=== PATIENT | male | born 1970 | race Hispanic/Latino ===

== ENCOUNTER → 2019-10-17 | Outpatient (CLI) | payer BC | END | disposition home or self-care (01) | LOC: RAH 13:01 | PROVIDERS: ATTEND Family Medicine | DX: S29.012A Strain of muscle and tendon of back wall of thorax, initial encounter (principal); M47.816 Spondylosis without myelopathy or radiculopathy, lumbar region; M25.78 Osteophyte, vertebrae; M47.814 Spondylosis without myelopathy or radiculopathy, thoracic region; M48.04 Spinal stenosis, thoracic region; X58.XXXA Exposure to other specified factors, initial encounter; Y93.89 Activity, other specified; Y92.89 Other specified places as the place of occurrence of the external cause; Y99.8 Other external cause status | CPT/HCPCS: 72072; 72100 ==

== ENCOUNTER 2022-03-27 17:03 | Emergency (ER) | payer BC ==
[~2022-03-27] VITALS: Ht 167.6 cm; Wt 81.6 kg
[2022-03-27 18:44] VITALS: BP 138/79
[2022-03-27] MEDS ORDERED: CYCLOBENZAPRINE HCL 10 MG TABLET PO ONE (19:00)
[2022-03-27] MEDS ORDERED: KETOROLAC 30MG VIAL (30MG/ML) IM ONE (19:00)
[2022-03-27] MEDS ORDERED: CYCL10TA16 PO (19:24)
[2022-03-27] MEDS ORDERED: IBUP-2070 PO (19:24)
== END 2022-03-27 19:46 | disposition home or self-care (01) ==
LOC: EDH 17:03
DX: S39.012A Strain of muscle, fascia and tendon of lower back, initial encounter (principal); X58.XXXA Exposure to other specified factors, initial encounter; Y93.89 Activity, other specified; Y92.89 Other specified places as the place of occurrence of the external cause; Y99.8 Other external cause status
CPT/HCPCS: 99284; 72131; 96372; J1885

== ENCOUNTER 2023-03-19 08:30 | Emergency (ER) | payer BC, OTHER ==
[~2023-03-19] VITALS: Ht 162.6 cm; Wt 82.6 kg
[~2023-03-19 08:30] MED LIST: CYCL10TA16 PO; IBUP-2070 PO
[2023-03-19 12:08] VITALS: BP 122/73; PULSE 74; RESP 18; O2SAT 98
[2023-03-19] MEDS ORDERED: MECL-302 PO (13:30)
[2023-03-19] MEDS ORDERED: NAPR-1192 PO (13:30)
== END 2023-03-19 13:39 | disposition home or self-care (01) ==
LOC: EDH 08:30
DX: S09.90XA Unspecified injury of head, initial encounter (principal); K21.9 Gastro-esophageal reflux disease without esophagitis; Y04.0XXA Assault by unarmed brawl or fight, initial encounter; Y93.89 Activity, other specified; Y92.89 Other specified places as the place of occurrence of the external cause; Y99.8 Other external cause status
CPT/HCPCS: 70450; 70486; 72125